=== PATIENT | male | born 1960 | race Caucasian/White ===

== ENCOUNTER 2019-03-31 10:36 | Emergency (ER) | payer OTHER ==
[2019-03-31 10:51] VITALS: BP 137/67
--- NOTE | 2019-03-31 12:18 | UC ---
Complaint Male HPI - HPI Summary HPI Summary: Waxing and Waning right flank pain for 5 days---has been vomiting due to pain at time------no fevers, hemauria, burning with urination does have urgency - History of Current Complaint Chief Complaint: UCGU Stated Complaint: KIDNEY ISSUES Time Seen by Provider: 03/31/19 12:12 Hx Obtained From: Patient Onset/Duration: Sudden Onset, Lasting Days - 5, Still Present Timing: Constant, Intermittent - with intermittent Spikes of pain Pain Intensity: 4 - spiking to 9 at time (including this morning) Pain Scale Used: 0-10 Numeric Location: Flank - right Character: Colicy Aggravating Factor(s): Nothing Alleviating Factor(s): Nothing Associated Signs And Symptoms: Positive: Back Pain, Nausea, Vomiting(# Of Episodes =) - Allergies/Home Medications Allergies/Adverse Reactions: Allergies Allergy/AdvReac Type Severity Reaction Status Date / Time No Known Allergies Allergy Verified 03/31/19 10:51 Home Medications: Home Medications Loratadine 1 tab PO DAILY 03/31/19 [History Confirmed 03/31/19] PMH/Surg Hx/FS Hx/Imm Hx Previously Healthy: Yes - Surgical History Surgical History: None - Family History Known Family History: Positive: None - Social History Occupation: Employed Full-time Lives: With Family Alcohol Use: Occasionally Substance Use Type: None Smoking Status (MU): Never Smoked Tobacco Review of Systems All Other Systems Reviewed And Are Negative: Yes Constitutional: Positive: Negative Skin: Positive: Negative Eyes: Positive: Negative ENT: Positive: Negative Respiratory: Positive: Negative Cardiovascular: Positive: Negative Gastrointestinal: Positive: Vomiting, Nausea Genitourinary: Positive: Frequency, Urgency, Other - right flank pain Motor: Positive: Negative Neurovascular: Positive: Negative Musculoskeletal: Positive: Negative Psychological: Positive: Negative Is Patient Immunocompromised?: No Physical Exam Triage Information Reviewed: Yes Appearance: Well-Appearing, No Pain Distress, Well-Nourished Vital Signs: Initial Vital Signs Temp 98 F 03/31/19 10:48 Pulse 54 03/31/19 10:48 Resp 16 03/31/19 10:48 BP 137/67 03/31/19 10:48 Pulse Ox 100 03/31/19 10:48 Vital Signs Reviewed: Yes Eye Exam: Normal Eyes: Positive: Conjunctiva Clear ENT Exam: Normal ENT: Positive: Normal ENT inspection, Hearing grossly normal. Negative: Trismus , Muffled voice, Hoarse voice Dental Exam: Normal Neck exam: Normal Neck: Positive: Supple, Nontender Respiratory Exam: Normal Respiratory: Positive: Chest non-tender, No respiratory distress, No accessory muscle use Cardiovascular Exam: Normal Cardiovascular: Positive: RRR, Pulses Normal, Brisk Capillary Refill Abdominal Exam: Normal Abdomen Description: Positive: Nontender, No Organomegaly, Soft, CVA Tenderness (R). Negative: CVA Tenderness (L), Distended Musculoskeletal Exam: Normal Musculoskeletal: Positive: Strength Intact, ROM Intact, No Edema Neurological Exam: Normal Neurological: Positive: Alert, Muscle Tone Normal Psychological Exam: Normal Skin Exam: Normal Complaint Male Course/Dx - Course Course Of Treatment: npo to ED for further assessment (as CT is not available) - Differential Dx/Diagnosis Provider Diagnosis: Renal colic on right side Discharge - Sign-Out/Discharge Documenting (check all that apply): Patient Departure All imaging exams completed and their final reports reviewed: No Studies - Discharge Plan Condition: Fair Disposition: HOME-RECOMMEND TO ED Patient Education Materials: Renal Colic (ED) Referrals: Reginald Morales MD [Primary Care Provider] - Additional Instructions: please go directly to the emergency department for evaluation of Renal Colic - Billing Disposition and Condition Condition: FAIR Disposition: Home-Recommend to ED
== END 2019-03-31 12:29 | disposition home health service (06) ==
LOC: UCEAST 10:36
DX: N23 Unspecified renal colic (principal)
CPT/HCPCS: 81003; 99212; G0463

== ENCOUNTER 2019-03-31 12:52 | Emergency (ER) | payer OTHER ==
[2019-03-31] MEDS ORDERED: NS 0.9% 1000 ML** 1,000 ML IV ONE (14:44)
[2019-03-31] MEDS ORDERED: Ketorolac INJ* 30 MG/ML 1 ML VIAL IV ONE (14:44)
[2019-03-31] MEDS ORDERED: Ondansetron INJ* 2 MG/ML VIAL IV ONE (14:44)
[2019-03-31 15:04] LABS: ABS Lymphocytes 0.9 10^3/ul (1.0-4.8); ABS Monocytes 0.5 10^3/ul (0-0.8); ABS Neutrophils 5.5 10^3/ul (1.5-7.7); Eosinophil % 0.2 %; Hematocrit 42 % (42-52); Hemoglobin 14.2 g/dL (14.0-18.0); Lymphocyte % 13.6 %; Mean Corpuscular HGB Conc 34 g/dL (31-36); Mean Corpuscular Hemoglobin 32 pg (27-31); Mean Corpuscular Volume 96 fL (80-94); Mean Platelet Volume 7.7 fL (7.4-10.4); Platelet Count 243 10^3/uL (150-450); Red Blood Count 4.42 10^6 /uL (4.18-5.48); Red Cell Distribution Width 15 % (10-15); White Blood Count 6.9 10^3/uL (3.5-10.8)
[2019-03-31 15:20] LABS: Albumin 4.2 g/dL (3.2-5.2); Albumin/Globulin Ratio 1.8 (1-3); BUN/Creatinine Ratio 18.5 (8-20); C Reactive Protein 2.29 mg/L (<8.01); Calcium 9.5 mg/dL (8.6-10.3); EGFR African American 117.6 (>60); EGFR Non-African American 97.2 (>60); Globulin 2.3 g/dL (2-4); Potassium 4.3 mmol/L (3.5-5.0); Total Bilirubin 0.8 mg/dL (0.2-1.0); Total Protein 6.5 g/dL (6.4-8.9)
--- NOTE | 2019-03-31 15:34 | ED ---
Abdominal Pain/Male - HPI Summary HPI Summary: This patient is a 58 year old M sent to ED from with a chief complaint of right flank pain since this morning. Patient also had similar pain on 03/26/19 in the right flank. Both pains lasted about an hour, and the patient reports nausea during the pain. The patient rates the pain 1/10 in severity. Symptoms aggravated by nothing. Symptoms alleviated by nothing. Patient reports nausea that has resolved in the room. Patient denies hematuria, dysuria, fever. PMHx of renal calculi 7 years ago but no DM, HTN. Denies surgeries. Denies FHx of DM , HTN. Patient occasionally drinks alcohol, but does not use substances or tobacco. - History of Current Complaint Chief Complaint: EDFlankPain Stated Complaint: RT SIDED FLANK PAIN PER PT Time Seen by Provider: 03/31/19 14:43 Hx Obtained From: Patient Onset/Duration: Sudden Onset, Lasting Hours - 1 hour, Resolved Timing: Intermittent - 2 episodes each lasting one hour. One episode on 03/26/19, second episode today, Lasting Hours - Each episode lasted approx 1 hour Severity Currently: Mild Pain Intensity: 1 Pain Scale Used: 0-10 Numeric Location: Flank - right Radiates: No Aggravating Factor(s): Nothing Alleviating Factor(s): Nothing Associated Signs And Symptoms: Positive: Negative - Hematuria, dysuria, Nausea. Negative: Fever Similar Episode/Dx As:: Kidney stone 7 years ago - Allergies/Home Medications Allergies/Adverse Reactions: Allergies Allergy/AdvReac Type Severity Reaction Status Date / Time No Known Allergies Allergy Verified 03/31/19 12:59 PMH/Surg Hx/FS Hx/Imm Hx Previously Healthy: No Endocrine/Hematology History: Denies: Hx Diabetes Cardiovascular History: Denies: Hx Hypertension History: Reports: Hx Kidney Stones - Surgical History Surgery Procedure, Year, and Place: Denies Infectious Disease History: No Infectious Disease History: Denies: Traveled Outside the [place] in Last 30 Days - Family History Known Family History: Negative: Hypertension, Diabetes - Social History Alcohol Use: Weekly Hx Substance Use: No Substance Use Type: Reports: None Hx Tobacco Use: No Smoking Status (MU): Never Smoked Tobacco Review of Systems Negative: Fever Positive: Nausea Positive: flank pain - Right. Negative: dysuria, hematuria All Other Systems Reviewed And Are Negative: Yes Physical Exam - Summary Physical Exam Summary: VITAL SIGNS: Reviewed. GENERAL: Patient is a well-developed and nourished male who is lying comfortable in the stretcher. Patient is not in any acute respiratory distress. HEAD AND FACE: Normocephalic and atraumatic. EYES: PERRLA, EOMI x 2, No injected conjunctiva. EARS: Hearing grossly intact. Ear canals and tympanic membranes are WNL. MOUTH: Oropharynx within normal limits. NECK: Supple, trachea is midline, no adenopathy, no JVD. CHEST: Symmetric, no tenderness at palpation LUNGS: Clear to auscultation bilaterally. No wheezing or crackles. CVS: RRR, S1 and S2 present, no murmurs or gallops appreciated. ABDOMEN: Soft, non-tender. No signs of distention. Positive bowel sounds. No rebound no guarding, and no masses palpated. No abdominal bruit or pulsations. EXTREMITIES: FROM in all major joints, no edema, no cyanosis or clubbing. NEURO: Alert and oriented x 3. No acute neurological deficits. Speech is normal. SKIN: Dry and warm. Triage Information Reviewed: Yes Vital Signs On Initial Exam: Initial Vitals Temp Pulse Resp BP Pulse Ox 98.3 F 50 18 158/86 98 03/31/19 12:57 03/31/19 12:57 03/31/19 12:57 03/31/19 12:57 03/31/19 12:57 Vital Signs Reviewed: Yes Diagnostics - Vital Signs Vital Signs Temp Pulse Resp BP Pulse Ox 03/31/19 14:28 98.4 F 48 18 131/65 100 03/31/19 12:57 98.3 F 50 18 158/86 98 - Laboratory Lab Results: Lab Results 03/31/19 03/31/19 03/31/19 Range/Units 14:56 14:56 14:56 WBC 6.9 (3.5-10.8) 10^3/uL RBC 4.42 (4.18-5.48) 10^6 /uL Hgb 14.2 (14.0-18.0) g/dL Hct 42 (42-52) % MCV 96 H (80-94) fL MCH 32 H (27-31) pg MCHC 34 (31-36) g/dL RDW 15 (10-15) % Plt Count 243 (150-450) 10^3/uL MPV 7.7 (7.4-10.4) fL Neut % (Auto) 79.0 % Lymph % (Auto) 13.6 % [place] % (Auto) 6.8 % Eos % (Auto) 0.2 % Baso % (Auto) 0.4 % Absolute Neuts (auto) 5.5 (1.5-7.7) 10^3/ul Absolute Lymphs (auto) 0.9 L (1.0-4.8) 10^3/ul Absolute Monos (auto) 0.5 (0-0.8) 10^3/ul Absolute Eos (auto) 0.0 (0-0.6) 10^3/ul Absolute Basos (auto) 0.0 (0-0.2) 10^3/ul Absolute Nucleated RBC 0.0 10^3/ul Nucleated RBC % 0.0 Sodium 139 (135-145) mmol/L Potassium 4.3 (3.5-5.0) mmol/L Chloride 106 (101-111) mmol/L Carbon Dioxide 29 (22-32) mmol/L Anion Gap 4 (2-11) mmol/L BUN 15 (6-24) mg/dL Creatinine 0.81 (0.67-1.17) mg/dL Est GFR ( Amer) 117.6 (>60) Est GFR (Non-Af Amer) 97.2 (>60) BUN/Creatinine Ratio 18.5 (8-20) Glucose 114 H (70-100) mg/dL Lactic Acid 1.0 (0.5-2.0) mmol/L Calcium 9.5 (8.6-10.3) mg/dL Total Bilirubin 0.80 (0.2-1.0) mg/dL AST 25 (13-39) U/L ALT 20 (7-52) U/L Alkaline Phosphatase 69 (34-104) U/L Total Creatine Kinase 158 (10-223) U/L C-Reactive Protein 2.29 (<8.01) mg/L Total Protein 6.5 (6.4-8.9) g/dL Albumin 4.2 (3.2-5.2) g/dL Globulin 2.3 (2-4) g/dL Albumin/Globulin Ratio 1.8 (1-3) Lipase 12 (11.0-82.0) U/L Result Diagrams: 03/31/19 14:56 03/31/19 14:56 Lab Statement: Any lab studies that have been ordered have been reviewed, and results considered in the medical decision making process. - CT A/P CT Interpretation Completed By: Radiologist Summary of CT Findings: 1. There is a nonobstructive punctate calcification at the distal right ureter. 2. Chronic and degenerative changes described in the body the report unlikely to be related to the patient's current presentation. Dr. Dahl has reviewed this radiology report. Re-Evaluation - Re-Evaluation First Eval Re-Evaluation Time: 16:50 Comment: Discussed results with patient. Patient will be discharged home with dx of kidney stone and instructions to follow up with urology. Patient inquired about flomax but I explained to him the study stating that flomax is no longer indicated for kidney stones. Patient understands and agrees with this plan. Abdominal Pain Male Course/Dx - Course Assessment/Plan: This patient is a 58 year old M sent to ED from with a chief complaint of right flank pain since this morning. Patient also had similar pain on 03/26/19 in the right flank. Both pains lasted about an hour, and the patient reports nausea during the pain. The patient rates the pain 1/10 in severity. Symptoms aggravated by nothing. Symptoms alleviated by nothing. Patient reports nausea that has resolved in the room. Patient denies hematuria, dysuria, fever. PMHx of renal calculi 7 years ago but no DM, HTN. Denies surgeries. Denies FHx of DM, HTN. Patient occasionally drinks alcohol, but does not use substances or tobacco. Blood work without any significant abnormality except for glucose 114. Abdominal and pelvic CT impression: 1. There is a nonobstructive punctate calcification at the distal right ureter. 2. Chronic and degenerative changes described in the body the report unlikely to be. related to the patient's current presentation. Urinalysis done in the urgent care is negative. The patient doesnt require any pain medication. The patient is asymptomatic at this point. Therefore the patient will be discharged home with follow-up with PCP and urology. Patient will be given a prescription for pain medications. - Diagnoses Provider Diagnoses: Kidney stone on right side Discharge - Sign-Out/Discharge Documenting (check all that apply): Patient Departure - Discharge Patient Received Moderate/Deep Sedation with Procedure: No - Discharge Plan Condition: Stable Disposition: HOME Prescriptions: HYDROcodone/ACETAMIN 5-325 MG* [[place] 5-325 TAB*] 1 tab PO Q6H PRN #12 tab MDD 4 PRN Reason: Pain Patient Education Materials: Kidney Stones (ED) Referrals: Reginald Morales MD [Primary Care Provider] - 3 Days Tae Salinas MD [Medical Doctor] - 3 Days Additional Instructions: FOLLOW UP WITH YOUR PRIMARY CARE PROVIDER WITHIN ONE WEEK. FOLLOW UP WITH DR. SALINAS (UROLOGIST) WITHIN ONE WEEK. RETURN TO THE ED FOR ANY WORSENING OR NEW SYMPTOMS. - Billing Disposition and Condition Condition: STABLE Disposition: Home - Attestation Statements Document Initiated by Scribe: Yes Documenting Scribe: Barrington Saucedo Provider For Whom Maribeth is Documenting (Include Credential): Martell Dahl MD Scribe Attestation: Barrington Campbell, scribed for Martell Dahl MD on 04/01/19 at 1013. Scribe Documentation Reviewed: Yes Provider Attestation: The documentation as recorded by the Barrington knight accurately reflects the service I personally performed and the decisions made by me, Martell Dahl MD Status of Scribe Document: Viewed
[2019-03-31 16:57] VITALS: BP 132/66
== END 2019-03-31 16:56 | disposition home or self-care (01) ==
LOC: ED 12:52
DX: N20.0 Calculus of kidney (principal)
CPT/HCPCS: 36415; 74176; 80053; 82550; 83605; 83690; 85025; 86140; 96361; 96374; 96375; 99282

== ENCOUNTER 2019-04-09 08:13 | Emergency (ER) | payer OTHER ==
--- OUTSIDE RECORDS SUMMARY | 2019-04-09 08:25 | XMS REPORT | Continuity of Care Document ---
:1960 External Reference #:[id number] Author Name Reginald Morales M.D. Address [address] [facility] [address] [place] [address] Care Team Providers Name Role Phone HCP/LW on file Primary Care Physician Unavailable Payers Date Identification Numbers Payment Provider Subscriber Policy Number: [id number] Rolanda Zhu PayID: [id number] [address] [place] [address] Problems Active Problems Provider Date Mitral valve disorder Jeanine Garcia MD Onset: 06/17/2010 Allergic rhinitis Jeanine Garcia MD Onset: 06/17/2010 Resolved Problems Benign essential hypertension Jeanine Garcia MD Onset: 06/17/2010 Resolved: 08/31/2018 Family History Date Family Member(s) Observation Comments General No Cancer in 1st degree relatives. : (age 82 Father due to Subdural Years) Hematoma (After A Fall) Father Heart Problems [place] in his 60s; CABGx3 AFTER [place] in his 70s Mother due to From () Complication After Heart Valve Surgery At Age 82 Mother High Blood Pressure Number of Siblings Siblings: 3 (2 brothers, 1 sister). all with hx of joint replacements. 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 Uses sunscreen Seat Belt/Car Seat Always uses a seat belt Currently Active The patient is currently sexually active Contraceptive Methods Does not currently use any method of control Age 1st [place] First intercourse was at age 18 # Partners in a Lifetime The patient has had 3 sexual partners Sexual Hx PT States Heterosexual Allergies, Adverse Reactions, Alerts Description No Known Drug Allergies Medications Active Medications SIG Qnty Indications Ordering Date Provider Pyridium 1 tabs by mouth 15tabs R35.0 Reginald Morales, 04/02/2019 200mg Tablets three times a day M.DJeanmarie for bladder irritation Claritin one po daily prn Unknown 2019 Fluocinonide Apply To Scalp Unknown 06/20/2018 0.05% Nightly For 1 Week Solution Then as Needed Multivitamin 50+ 1 qd Unknown 08/27/2017 History Medications Fexofenadine HCL Unknown 07/31/2018 - 2019 Nasonex 1 sprays to each 17gm H69.02 Bello Bautista 03/10/2016 - 50mcg/Act nostril twice every Kristin Cárdenas 03/20/2016 Suspension day as needed to improve the ear Trimethoprim opthalmic 1 or 2 10ml H10.021 Bello Bautista 03/04/2016 - Sulfate/Polymyxin B drops in each eye Kristin Cárdenas 03/14/2016 Sulfate three times a day for 5 days 89289-8.1Unit/ML-% Solution PT For Right evaluate and treat, M25.511 Carmen, 08/25/2015 - Shoulder Pain modalities as Kristin Montelongo 08/25/2016 needed, instruct in hep Ibuprofen prn OTC Unknown 07/28/2014 - 200mg 08/27/2017 Capsules Fluticasone 2 sprays into each 1units 477.9 Jeanine Garcia 11/01/2012 - Propionate nostril qd for 07/28/2014 50mcg/Act nasal congestion. Suspension alessio allergies. rinse mouth post Cetirizine HCL 1 po daily otc Unknown 06/22/2011 - 10mg 04/30/2018 Tablets Ecotrin Low Strength 1tab po daily for 100tabs Jeanine Garcia 06/11/2009 - cad/cva prophylaxis 08/25/2015 81mg Tablets BP Monitor take bp once week 1units 401.1 Jeanine Garcia 06/11/2009 - and see if can d/c 08/25/2015 enalapril. PT For Right Hip please evaluate and 843.8 Carmen 02/11/2009 - (Quadriceps) Strain treat, modalities Kristin Montelongo 06/11/2009 prn, instruct in hep Tramadol HCL 1-2 po q6h prn for 30tabs 843.8 Carmen 02/11/2009 - 50mg pain Kristin Montelongo 06/11/2009 Tablets Vasotec 1/2 tab po qd 90tabs 401.1 Jeanine Garcia 01/01/2009 - 5mg Tablets 06/11/2009 Ibuprofen 2 to 3 tab po q6 to 100tabs 719.41 Jeanine Garcia 06/28/2007 - 200mg 8h prn 06/22/2011 Tablets elbow/shoulder pain. can use with tylenol 1gm q6hmax ibuprofen is 2400mg/day 726.32 Physical Therpay for RT shoulder(rcs?) 6Weeks 719.41 Jeanine Garcia 2006 - and elbow pain(lat 01/01/2009 epicondylitis). help eval and treat 2 to 3x week Vasotec 1 tab po daily 90tabs 401.9 Jeanine Garcia 06/29/2006 - 5mg 01/01/2009 Tablets 401.1 Allergy Immunotherapy Unknown - 06/22/2011 Medications Administered in Office Medication SIG Qnty Indications Ordering Provider Date Allergen Immunotherapy Reginald Morales M.D. 06/07/2017 SNGL/Mult - Specify # Doses Injection SC/Im Injections Nurse's Schedule 08/26/2016 Injection Allergen Immunotherapy Bello Cárdenas M.D. 06/13/2016 SNGL/Mult - Specify # Doses Injection Allergen Immunotherapy Reginald Morales M.D. 07/09/2015 SNGL/Mult - Specify # Doses Injection Allergen Immunotherapy Bello Cárdenas M.D. 08/08/2014 SNGL/Mult - Specify # Doses Injection Allergen Immunotherapy Jeanine Garcia MD 11/22/2013 SNGL/Mult - Specify # Doses Injection Allergen Immunotherapy Jeanine Garcia MD 07/18/2013 SNGL/Mult - Specify # Doses Injection Allergen Immunotherapy Jeanine Gacria MD 12/20/2012 SNGL/Mult - Specify # Doses Injection Immunizations CPT Code Status Date Vaccine Lot # [id number] Given 01/25/2019 Shingrix Zoster (Shingles) Vaccine (HZV) Recomb,Subnit,Adjuvanted 87017 Given 08/02/2018 Shingrix Zoster (Shingles) Vaccine (HZV) [id number] Recomb,Subnit,Adjuvanted 31277 Given 07/20/2018 Influenza Virus Vaccine, Quadrivalent, Split, Preservative Free 43565 Given 06/17/2010 Adacel or Boostrix, TDaP [id number] 82097 Given 04/22/2003 Td Immunization Vital Signs Date Vital Result Comment 04/02/2019 2:00pm BP Systolic 112 mmHg BP Diastolic 72 mmHg Height 71.25 inches 5'11.25" Weight 172.00 lb BMI (Body Mass Index) 23.8 kg/m2 08/31/2018 9:50am BP Systolic 122 mmHg BP Diastolic 66 mmHg Height 71.50 inches 5'11.50" Weight 168.00 lb BMI (Body Mass Index) 23.1 kg/m2 06/04/2018 2:45pm BP Systolic 126 mmHg BP Diastolic 54 mmHg Weight 170.00 lb 04/09/2018 3:54pm BP Systolic 128 mmHg BP Diastolic 70 mmHg 04/04/2018 4:03pm BP Systolic 116 mmHg BP Diastolic 70 mmHg Height 71 inches 5'11" Weight 171.00 lb BMI (Body Mass Index) 23.8 kg/m2 08/28/2017 2:09pm BP Systolic 118 mmHg BP Diastolic 70 mmHg Heart Rate 60 /min reg Respiratory Rate 12 /min not laboured Height 71 inches 5'11" Weight 169.00 lb BMI (Body Mass Index) 23.6 kg/m2 08/26/2016 2:02pm BP Systolic 118 mmHg BP Diastolic 60 mmHg BP Systolic Recheck 124 mmHg R arm sitting BP Diastolic Recheck 68 mmHg R arm sitting Heart Rate 60 /min reg Respiratory Rate 12 /min not laboured Height 71.25 inches 5'11.25" Weight 172.00 lb BMI (Body Mass Index) 23.8 kg/m2 03/10/2016 4:12pm Body Temperature 97.9 F 03/04/2016 3:57pm BP Systolic 120 mmHg BP Diastolic 80 mmHg Body Temperature 99.3 F Height 72 inches 6'0" with sneakers Weight 174.00 lb with sneakers BMI (Body Mass Index) 23.6 kg/m2 08/25/2015 10:27am BP Systolic 122 mmHg BP Diastolic 64 mmHg Height 71.50 inches 5'11.50" Weight 176.00 lb BMI (Body Mass Index) 24.2 kg/m2 08/20/2014 9:31am BP Systolic 116 mmHg BP Diastolic 76 mmHg Height 71.75 inches 5'11.75" Weight 179.50 lb BMI (Body Mass Index) 24.5 kg/m2 07/29/2014 11:39am BP Systolic 133 mmHg BP Diastolic 69 mmHg Heart Rate 58 /min Height 72.75 inches 6'0.75" shoes on Weight 183.00 lb shoes on BMI (Body Mass Index) 24.3 kg/m2 11/19/2012 1:51pm BP Systolic 140 mmHg BP Diastolic 82 mmHg 11/01/2012 2:54pm BP Systolic 130 mmHg BP Diastolic 76 mmHg Height 71.50 inches 5'11.50" Weight 177.00 lb BMI (Body Mass Index) 24.3 kg/m2 06/23/2011 9:22am BP Systolic 120 mmHg BP Diastolic 70 mmHg Height 72 inches 6'0" Weight 180.00 lb BMI (Body Mass Index) 24.4 kg/m2 06/17/2010 9:26am BP Systolic 122 mmHg BP Diastolic 76 mmHg Height 72.25 inches 6'0.25" Weight 179.00 lb BMI (Body Mass Index) 24.1 kg/m2 08/27/2009 8:55am BP Systolic 102 mmHg compare to home machine:128/74 BP Diastolic 78 mmHg compare to home machine:128/74 Weight 175.50 lb 06/11/2009 1:38pm BP Systolic 122 mmHg BP Diastolic 70 mmHg Height 72 inches 6'0" Weight 176.00 lb BMI (Body Mass Index) 23.9 kg/m2 02/11/2009 11:27am BP Systolic 146 mmHg BP Diastolic 70 mmHg Weight 175.00 lb Last Menstrual Period 0 01/01/2009 11:28am BP Systolic 112 mmHg BP Diastolic 72 mmHg Height 72 inches 6'0" Weight 180.00 lb w/out shoes BMI (Body Mass Index) 24.4 kg/m2 06/28/2007 9:05am BP Systolic 122 mmHg BP Diastolic 60 mmHg Height 72 inches 6'0" Weight 181.50 lb BMI (Body Mass Index) 24.6 kg/m2 08/16/2006 10:09am BP Systolic 136 mmHg BP Diastolic 78 mmHg BP Systolic Recheck 138 mmHg R arm sitting BP Diastolic Recheck 76 mmHg R arm sitting Height 72 inches 6'0" Weight 182.00 lb BMI (Body Mass Index) 24.7 kg/m2 Last Menstrual Period 0 Results Test Date Facility Test Result H/L Range Note Urine Micro Inhouse 04/02/2019 In House [facility] WBC 0-2 1 Ua RBC 0-1 Ua Casts - Ua Epi - Ua Other - Ua Glucose - Ua Bilirubin - Ua Ketones - Ua Specific Gonzales 1.015 Ua Blood - Ua PH 6.0 Ua Protein - Ua Urobilinogen - Ua Nitrite - Ua Leukocytes - Culture Urine Inhouse 04/02/2019 In House Presumptive <pending> Pseudomonas <pending> Staphylococcus <pending> Enterococcus <pending> Yeast <pending> E Coli <pending> Klebsiella <pending> Proteus <pending> Colonies <pending> CBC Auto Diff 03/31/2019 [facility] White Blood Count 6.9 10^3/uL N 3.5-10.8 [phone] Red Blood Count 4.42 10^6/uL N 4.18-5.48 Hemoglobin 14.2 g/dL N 14.0-18.0 Hematocrit 42 % N 42-52 Mean Corpuscular Volume 96 fL High 80-94 Mean Corpuscular Hemoglobin 32 pg High 27-31 Mean Corpuscular HGB Conc 34 g/dL N 31-36 Red Cell Distribution Width 15 % N 10-15 Platelet Count 243 10^3/uL N 150-450 Mean Platelet Volume 7.7 fL N 7.4-10.4 Abs Neutrophils 5.5 10^3/uL N 1.5-7.7 Abs Lymphocytes 0.9 10^3/uL Low 1.0-4.8 Abs Monocytes 0.5 10^3/uL N 0-0.8 Abs Eosinophils 0.0 10^3/uL N 0-0.6 Abs Basophils 0.0 10^3/uL N 0-0.2 Abs Nucleated RBC 0.0 10^3/uL Granulocyte % 79.0 % Lymphocyte % 13.6 % Monocyte % 6.8 % Eosinophil % 0.2 % Basophil % 0.4 % Nucleated Red Blood Cells % 0.0 Laboratory test finding 03/31/2019 [facility] Lactic Acid 1.0 mmol/L N 0.5-2.0 2 [phone] Comp Metabolic Panel 03/31/2019 [facility] Sodium 139 mmol/L N 135- 145 [phone] Potassium 4.3 mmol/L N 3.5-5.0 Chloride 106 mmol/L N 101-111 Co2 Carbon Dioxide 29 mmol/L N 22-32 Anion Gap 4 mmol/L N 2-11 Glucose 114 mg/dL High 70-100 Blood Urea Nitrogen 15 mg/dL N 6-24 Creatinine 0.81 mg/dL N 0.67-1.17 BUN/Creatinine Ratio 18.5 N 8-20 Calcium 9.5 mg/dL N 8.6-10.3 Total Protein 6.5 g/dL N 6.4-8.9 Albumin 4.2 g/dL N 3.2-5.2 Globulin 2.3 g/dL N 2-4 Albumin/Globulin Ratio 1.8 N 1-3 Total Bilirubin 0.80 mg/dL N 0.2-1.0 Alkaline Phosphatase 69 U/L N 34-104 Alt 20 U/L N 7-52 Ast 25 U/L N 13-39 Egfr Non- 97.2 >60 Egfr 117.6 >60 3 Laboratory test finding 03/31/2019 [facility] Lipase 12 U/L N 11.0- 82.0 [phone] Creatine Kinase(CK) 158 U/L N 10-223 C Reactive Protein 2.29 mg/L N <8.01 Poc Urinalysis 03/31/2019 [facility] Poc Glucose, Urine Negative Negative [phone] Poc Bilirubin, Urine Negative Negative Poc Ketone, Urine Negative Negative Poc Specific Gonzales, Urine 1.015 N 1.010-1.030 Poc Blood, Urine 2+ Abnormal Negative Poc pH, Urine 6.0 N 5-9 Poc Protein, Urine Negative Negative Poc Urobilinogen, Urine 0.2 Negative Poc Nitrite, Urine Negative Negative Poc Leukocytes, Urine Negative Negative Poc Color, Urine Yellow Poc Clarity, Urine Clear 4 Urine Micro Inhouse 08/31/2018 In House Ua WBC - 5 Ua RBC - Ua Casts - Ua Epi - Ua Other - Ua Glucose - Ua Bilirubin - Ua Ketones - Ua Specific Gonzales 1.025 Ua Blood - Ua PH 6.0 Ua Protein - Ua Urobilinogen - Ua Nitrite - Ua Leukocytes - Laboratory test 01/25/2018 [facility] Surgical Pathology SEE RESULT 6, 7 finding [phone] BELOW Lipid Profile 07/29/2016 [facility] Triglycerides 59 mg/dL N 8 (Trig/Chol/HDL) [phone] Cholesterol 166 mg/dL N 9 HDL Cholesterol 60.8 mg/dL N 10 LDL Cholesterol 93 mg/dL N 11 Laboratory test finding 07/29/2016 [facility] Glucose 90 mg/dL N 70- 100 12 [phone] Lipid Profile 07/27/2015 [facility] Triglycerides 61 mg/dL N 13 (Trig/Chol/HDL) [phone] Cholesterol 167 mg/dL N 14 HDL Cholesterol 62.2 mg/dL N 15 LDL Cholesterol 93 mg/dL N 16 Laboratory test 07/27/2015 [facility] Glucose 92 mg/dL N 70-100 finding [phone] Laboratory test 08/20/2014 [facility] Hepatitis C Nonreactive N Nonreactive finding [phone] Antibody PSA Screening 1.257 ng/mL N 0-4.000 17 Urine Micro Inhouse 08/20/2014 In House Ua WBC 0-2 Ua RBC 0-1 Ua Casts - Ua Epi - Ua Other sediment Ua Glucose - Ua Bilirubin - Ua Ketones - Ua Specific Gonzales 1.005 Ua Blood - Ua PH 8.0 Ua Protein - Ua Urobilinogen - Ua Nitrite - Ua Leukocytes - Lipid Profile (Trig/Chol/HDL) 08/11/2014 [facility] Triglycerides 89 mg /dL N 18 [phone] Cholesterol 176 mg/dL N 19 HDL Cholesterol 56.9 mg/dL N 20 LDL Cholesterol 101 mg/dL N 21 Laboratory test 08/11/2014 [facility] Glucose 87 mg/dL N 70-100 finding [phone] Surgical Pathology 01/31/2013 [place] [employer] S RUN DATE: 22 [phone] 02/04/ <SEE NOTE> Lipid Profile 11/02/2012 [facility] Triglycerides 78 mg/dL 40-200 (Trig/Chol/HDL) [phone] Cholesterol 195 mg/dL Less than 200 HDL Cholesterol 64 mg/dL High 40-60 23 Cholesterol/HDL Ratio 3.3 Average 1-4.44 LDL Cholesterol 120.4 mg/dL High Less Than 100 24 Comp Metabolic Panel 11/02/2012 [facility] Sodium 140 mmol/L 133- 145 [phone] Potassium 4.0 mmol/L 3.5-5.0 Chloride 104 mmol/L 101-111 Co2 Carbon Dioxide 31.0 mmol/L 22-32 Anion Gap 5.0 mmol/L 2-11 Glucose 101 mg/dL High 70-100 Blood Urea Nitrogen 17 mg/dL 6-24 Creatinine 0.90 mg/dL 0.50-1.40 BUN/Creatinine Ratio 18.9 8-20 Calcium 9.3 mg/dL 8.1-9.9 Total Protein 6.5 g/dL 6.2-8.1 Albumin 3.9 g/dL 3.6-5.4 Globulin 2.6 g/dL 2-4 Albumin/Globulin Ratio 1.5 1-3 Total Bilirubin 1.0 mg/dL 0.4-1.5 Alkaline Phosphatase 66 U/L 30-110 Alt 26 U/L 14-54 Ast 24 U/L 12-42 Egfr Non- 87.9 >60 Egfr 113.1 >60 25 CBC With Manual 11/02/2012 [facility] White Blood 5.5 10^3/uL 4.8- 10.8 Diff [phone] Count Red Blood Count 4.40 10^6/uL 4.0-5.4 Hemoglobin 13.9 g/dL Low 14.0-18.0 Hematocrit 42 % 42-52 Mean Corpuscular Volume 96 fL High 80-94 Mean Corpuscular Hemoglobin 32 pg High 27-31 Mean Corpuscular HGB Conc 33 g/dL 31-36 Red Cell Distribution Width 15 % 10.5-15 Platelet Count 272 10^3/uL 150-450 Mean Platelet Volume 8 um3 7.4-10.4 Abs Neutrophils 2.8 10^3/uL 1.5-7.7 Abs Lymphocytes 1.8 10^3/uL 1.0-4.8 Abs Monocytes 0.7 10^3/uL 0-0.8 Abs Eosinophils 0.2 10^3/uL 0-0.6 Abs Basophils 0 10^3/uL 0-0.2 Abs Nucleated RBC 0 10^3/uL Neutrophil % 46 % 38-83 Lymphocytes % 35 % 25-47 Monocytes % 11 % 0-13 Eosinophils % 6 % 0-6 Basophil % 1 % 0-2 Reactive Lymph % 1 % 0-6 Macrocytosis 1+ Retic Count 11/02/2012 [facility] Retic Count 0.9 % 0.5-1.5 [phone] Corrected Retic Count 0.8 % 0.5-1.5 Maturation Factor Retic 1.0 Retic Index 0.80 Mean Retic Volume 122.1 Immature Retic Fraction 0.31 RBC Retic Count 4.40 10^6/uL Low 4.6-6.2 Hematocrit for Retic CNT 42 % 42-52 Laboratory test finding 11/02/2012 [facility] Vitamin B12 661 pg/mL 180-914 26 [phone] Folate > 25.0 ng/mL High 2-16 27 Ferritin 63 ng/mL 24-336 28 Iron & Iron Binding Capacity 11/02/2012 [facility] Iron 94 g/dL 45 -182 [phone] Unsaturated Iron Binding 264 g/dL Total Iron Binding Capacity 358 g/dL 250-450 Transferrin 255.9 % Iron Saturation 26 % 15-55 Pthi 11/02/2012 [facility] PTH Intact 5.1 pmol/L 1.3-9.0 [phone] Calcium (PTH Intact) 9.1 mg/dL 8.1-9.9 Laboratory test finding 11/02/2012 [facility] Phosphorus 3.3 mg/dL 2.4-4.7 29 [phone] Uric Acid 4.8 mg/dL 2.6-7.2 30 Urine Micro Inhouse 11/01/2012 In House Ua WBC - Ua RBC - Ua Casts - Ua Epi many Ua Other - Ua Glucose - Ua Bilirubin - Ua Ketones - Ua Specific Gonzales 1.005 Ua Blood - Ua PH 6.0 Ua Protein - Ua Urobilinogen - Ua Nitrite - Ua Leukocytes - CBC With Manual 04/24/2012 [facility] White Blood Count 7.8 CUMM 4.8 -10.8 Diff [phone] Red Cell Count 4.20 CUMM Low 4.6-6.2 Hemoglobin 13.4 g/dL Low 14.0-18.0 Hematocrit 40 % Low 42-52 Mean Corpuscular Volume 94 um3 80-94 Mean Corpuscular Hemoglob 32 pg High 27-31 Mean Corpuscular HGB Cone 34 g/dL 32-36 Redcell Distribution WDTH 14 % 10.5-15 Platelet Count 238 CUMM 150-450 Mean Platelet Volume 8.0 um3 7.4-10.4 Absolute Neutrophil Count 6.1 1.5-7.7 Polysegmented Neutrophil 83 % 38-83 Band Neutrophil 1 % 0-8 Lymphocyte 11 % Low 25-47 Monocyte 3 % 0-13 Eosinophil 2 % 0-6 Anisocytosis SLIGHT Comp Metabolic Panel 04/24/2012 [facility] Sodium 139 mmol/L 135- 145 [phone] Potassium 4.4 mmol/L 3.5-5.0 Chloride 102 mmol/L 101-111 Co2 (Carbon Dioxide) 28.0 mmol/L 22-32 Anion Gap 9.0 mmol/L 2-11 31 Glucose 153 mg/dL High 70-100 BUN 17 mg/dL 6-24 Creatinine 1.0 mg/dL 0.50-1.40 One Over Creatinine 1.00 BUN/Creatinine Ratio 17.0 8-20 Calcium 9.1 mg/dL 8.1-9.9 Total Protein 6.2 GM/DL 6.2-8.1 Albumin 3.9 GM/DL 3.6-5.4 Globulin 2.3 GM/DL 2-4 Albumin/Globulin Ratio 1.7 1-3 Bilirubin Total 0.7 mg/dL 0.4-1.5 32 Alkaline Phosphatase 64 U/L 39-117 Alt (SGPT) 22 U/L 17-63 Ast (Sgot) 26 U/L 12-42 eGFR Non- 77.9 > 60 eGFR 100.1 > 60 33 Urine Culture & 04/24/2012 [facility] <SEE 34 Sensitivi [phone] NOTE> Laboratory test 06/29/2011 [facility] PSA Screening 0.76 NG/ML 0-4 35 finding [phone] Comp Metabolic 06/29/2011 [facility] Sodium 141 mmol/L 135- Panel [phone] Potassium 4.1 mmol/L 3.5-5.0 Chloride 105 mmol/L 101-111 Co2 (Carbon Dioxide) 31.0 mmol/L 22-32 Anion Gap 5.0 mmol/L 2-11 36 Glucose 96 mg/dL 70-100 BUN 20 mg/dL 6-24 Creatinine 0.8 mg/dL 0.50-1.40 One Over Creatinine 1.25 BUN/Creatinine Ratio 25.0 High 8-20 Calcium 9.1 mg/dL 8.1-9.9 Total Protein 6.0 GM/DL Low 6.2-8.1 Albumin 3.9 GM/DL 3.6-5.4 Globulin 2.1 GM/DL 2-4 Albumin/Globulin Ratio 1.9 1-3 Bilirubin Total 1.0 mg/dL 0.4-1.5 37 Alkaline Phosphatase 59 U/L 39-117 Alt (SGPT) 20 U/L 17-63 Ast (Sgot) 21 U/L 12-42 eGFR Non- 101.1 > 60 eGFR 130.0 > 60 38 Urine Micro Inhouse 06/23/2011 In House Ua WBC - Ua RBC - Ua Casts - Ua Epi - Ua Other sediment tntc Ua Glucose - Ua Bilirubin - Ua Ketones - Ua Specific Gonzales 1.000 Ua Blood - Ua PH 7.0 Ua Protein - Ua Urobilinogen - Ua Nitrite - Ua Leukocytes tr Comp Metabolic Panel 01/01/2009 [facility] Sodium 139 mmol/L 135- 145 [phone] Potassium 4.4 mmol/L 3.5-5.0 Chloride 104 mmol/L 101-111 Co2 (Carbon Dioxide) 31.0 mmol/L 22-32 Anion Gap 4.0 mmol/L 2-11 39 Glucose 90 mg/dL 70-100 40 BUN 15 mg/dL 6-24 Creatinine 0.90 mg/dL 0.50-1.40 One Over Creatinine 1.10 BUN/Creatinine Ratio 16.7 8-20 Calcium 9.5 mg/dL 8.1-9.9 41 Total Protein 6.1 GM/DL Low 6.2-8.1 Albumin 3.9 GM/DL 3.6-5.4 Globulin 2.2 GM/DL 2-4 Albumin/Globulin Ratio 1.8 1-3 Bilirubin Total 1.2 mg/dL 0.4-1.5 Alkaline Phosphatase 69 U/L 39-117 Alt (SGPT) 39 U/L 17-63 Ast (Sgot) 30 U/L 12-42 Lipid Profile 01/01/2009 [facility] Triglyceride 63 mg/dL 40-200 (Trig/Chol/HDL) [phone] Cholesterol 176 mg/dL Less Than 200 42 High Density Lipoprotein 54 mg/dL 40-60 43 Cholesterol/HDL Ratio 3.26 AVERAGE 1-4.97 Low Density Lipoprotein 109 mg/dL High Less Than 100 44 CBC With Manual 01/01/2009 [facility] White Blood Count 4.6 CUMM Low 4.8-10.8 Diff [phone] Red Cell Count 4.38 CUMM Low 4.6-6.2 Hemoglobin 14.0 g/dL 14.0-18.0 Hematocrit 41 % Low 42-52 Mean Corpuscular Volume 93 um3 80-94 Mean Corpuscular Hemoglob 32 pg High 27-31 Mean Corpuscular HGB Cone 35 g/dL 32-36 Redcell Distribution WDTH 15 % 10.5-15 Platelet Count 270 CUMM 150-450 Mean Platelet Volume 7.3 um3 Low 7.4-10.4 Polysegmented Neutrophil 53 % 38-83 Lymphocyte 33 % 25-47 Monocyte 10 % 0-13 Eosenophil 3 % 0-6 Atypical Lymph 1 % 0-6 Absolute Neutrophil Count 2.4 RBC Morphology NORMAL Comp Metabolic Panel 06/28/2007 [facility] One Over Creatinine 1.00 [phone] Anion Gap 6.0 mmol/L 2-11 45 Albumin/Globulin Ratio 1.9 1-3 Albumin 4.0 GM/DL 3.6-5.4 Alkaline Phosphatase 64 U/L 39-117 Alt (SGPT) 30 U/L 17-63 Ast (Sgot) 27 U/L 12-42 BUN 14 mg/dL 6-24 Calcium 9.1 mg/dL 8.7-10.2 Chloride 104 mmol/L 101-111 Co2 (Carbon Dioxide) 29.0 mmol/L 22-32 Globulin 2.1 GM/DL 2-4 Glucose 95 mg/dL 70-105 Potassium 4.2 mmol/L 3.5-5.0 Sodium 139 mmol/L 135-145 Bilirubin Total 1.0 mg/dL 0.4-1.5 Total Protein 6.1 GM/DL Low 6.2-8.1 BUN/Creatinine Ratio 14.0 8-20 Creatinine 1.0 mg/dL 0.5-1.4 Lipid Profile 06/28/2007 [facility] Cholesterol/HDL 3.37 1-4.97 (Trig/Chol/HDL) [phone] Ratio AVERAGE Cholesterol 202 mg/dL High Less Than 200 46 Triglyceride 71 mg/dL 40-200 High Density Lipoprotein 60 mg/dL 40-60 47 Low Density Lipoprotein 128 mg/dL High Less Than 100 48 Laboratory test finding 06/28/2007 [facility] TSH 3.44 MIU/ML 0.34- 5.60 [phone] Ferritin 77 NG/ML 24-336 CBC With Manual 06/28/2007 [facility] White Blood Count 4.8 CUMM 4.8 -10.8 Diff [phone] Absolute Neutrophil Count 2.7 Atypical Lymph 4 % 0-6 Anisocytosis SLIGHT Band Neutrophil 2 % 0-8 Hematocrit 41 % Low 42-52 Hemoglobin 13.8 g/dL Low 14.0-18.0 Eosenophil 1 % 0-6 Lymphocyte 29 % 5-47 Mean Corpuscular HGB Cone 34 g/dL 32-36 Mean Corpuscular Hemoglob 32 pg High 27-31 Mean Corpuscular Volume 95 um3 High 80-94 Monocyte 9 % 0-13 Mean Platelet Volume 7.4 um3 7.4-10.4 Platelet Count 309 CUMM 150-450 Polysegmented Neutrophil 55 % 38-83 Red Cell Count 4.31 CUMM Low 4.6-6.2 Redcell Distribution WDTH 15 % 10.5-15 Laboratory test finding 08/16/2006 In House Urine Microscopic Inhouse 0-2 RBC Ua Inhouse 08/16/2006 In House Ua Glucose - Ua Bilirubin - Ua Ketones - Ua Specific Gonzales 1.015 Ua Blood - Ua PH 7.0 Ua Protein tr Ua Urobilinogen - Ua Nitrite - Ua Leukocytes - Lipid Profile 07/03/2006 [facility] Cholesterol/HDL 3.15 1-4.97 49 (Trig/Chol/HDL) [phone] Ratio AVERAGE Cholesterol 195 mg/dL Less Than 200 50 Triglyceride 37 mg/dL Low 40-200 High Density Lipoprotein 62 mg/dL High 40-60 51 Low Density Lipoprotein 126 mg/dL High Less Than 100 52 Comp Metabolic Panel 07/03/2006 [facility] One Over Creatinine 1.00 [phone] Anion Gap 9.0 mmol/L 2-11 53 Albumin/Globulin Ratio 1.7 1-3 Albumin 4.1 GM/DL 3.6-5.4 Alkaline Phosphatase 73 U/L 39-117 Alt (SGPT) 37 U/L 17-63 Ast (Sgot) 35 U/L 12-42 BUN 15 mg/dL 6-24 Calcium 8.8 mg/dL 8.7-10.2 Chloride 99 mmol/L Low 101-111 Co2 (Carbon Dioxide) 28.0 mmol/L 22-32 Globulin 2.4 GM/DL 2-4 Glucose 80 mg/dL 70-105 Potassium 4.0 mmol/L 3.5-5.0 Sodium 136 mmol/L 135-145 Bilirubin Total 0.9 mg/dL 0.4-1.5 Total Protein 6.5 GM/DL 6.2-8.1 BUN/Creatinine Ratio 15.0 8-20 Creatinine 1.0 mg/dL 0.5-1.4 CBC With Manual 07/03/2006 [facility] White Blood Count 6.2 CUMM 4.8 -10.8 Diff [phone] Hematocrit 41 % Low 42-52 Hemoglobin 14.3 g/dL 14.0-18.0 Mean Corpuscular HGB Cone 35 g/dL 32-36 Mean Corpuscular Hemoglob 32 pg High 27-31 Mean Corpuscular Volume 93 um3 80-94 Mean Platelet Volume 7.2 um3 Low 7.4-10.4 Platelet Count 305 CUMM 150-450 Polysegmented Neutrophil 47 % 38-83 Red Cell Count 4.42 CUMM Low 4.6-6.2 Redcell Distribution WDTH 14 % 10.5-15 Absolute Neutrophil Count 3.0 Atypical Lymph 3 % 0-6 Anisocytosis SLIGHT Band Neutrophil 2 % 0-8 Basophil 2 % 0-2 Lymphocyte 38 % 5-47 Monocyte 8 % 0-13 Polychromasia SLIGHT 1 void, clear, yellow 2 [place] Severe Sepsis and Septic Shock Management Bundle Measure requires all lactic acids initially measuring >2.0 mmol/L be repeated. 3 Because ethnic data is not always readily available, this report includes an eGFR for both -Americans and non- Americans. The National Kidney Disease Education Program (NKDEP) does not endorse the use of the MDRD equation for patients that are not between the ages of 18 and 70, are , have extremes of body size, muscle mass, or nutritional status, or are non- or non-. According to the [employer], irrespective of diagnosis, the stage of the disease is based on the level of kidney function: Stage Description GFR(mL/min/1.73 m(2)) 1 Kidney damage with normal or decreased GFR 90 2 Kidney damage with mild decrease in GFR 60-89 3 Moderate decrease in GFR 30-59 4 Severe decrease in GFR 15-29 5 Kidney failure <15 (or dialysis) 4 Care Analyst: [id number] 5 void, clear, gold 6 [id number] SEE RESULT BELOW Name: MARIA ALEJANDRA ZHU : [address]: Live Connell MD Acct: [id number] Unit: [id number] AGE: 57 Location: [facility] Re01/25/18 SEX: M Status: DEP REF SPEC: [id number] BULMARO: 01/25/18-1150 [facility] DR: Live Connell MD REQ: [id number] RECD: 01/25/186938 STATUS: ERIC RUSSELL DR: Reginald Morales MD _ ORDERED: LEVEL 4/3 COMMENTS: [id number] FINAL DIAGNOSIS 1. Colon, hepatic flexure, biopsy: -- Tubular adenoma. -- No high grade dysplasia or malignancy. 2. Colon, ascending, biopsy: -- Tubular adenoma. -- No high grade dysplasia or malignancy. 3. Colon, at 60 cm, biopsy: -- Tubular adenoma. -- No high grade dysplasia or malignancy. POST-OPERATIVE DIAGNOSIS 4 polyps ? cecum x1, ascending x2, 60 cm ? biopsy GROSS DESCRIPTION 1. The specimen is received in formalin labeled, Hepatic Flexure Polyp Biopsy (2), and consists of two mondragon-pink irregular to polypoid soft tissue fragments measuring 0.6 x 0.3 x 0.2 cm and 0.6 x 0.3 by up to 0.3 cm which are entirely submitted in one cassette. 2. The specimen is received in formalin labeled, Ascending Colon Polyp Biopsy, and consists of a 0.6 x 0.3 x 0.2 cm speckled mondragon-pink irregular to polypoid soft tissue fragment which is entirely submitted in one cassette. 3. The specimen is received in formalin labeled, Biopsy Colon Polyp at 60 cm, and consists of two mondragon-pink irregular to polypoid soft tissue fragments measuring 0.4 x 0.2 x 0.1 cm and 0.4 x 0.4 by up to 0.3 cm which are entirely submitted in one cassette. CONTINUED ON NEXT PAGE DEPARTMENT OF PATHOLOGY, [address] [place] [address] Jorge Daley M.D. Director [facility] # [id number] RUN DATE: 01/26/18 [facility] LAB LIVE PAGE 2 Patient: MARIA ALEJANDRA ZHU [id number] (Continued) GROSS DESCRIPTION (Continued) Signed (signature on file) Radha Caban MD 04/09 1056 END OF REPORT DEPARTMENT OF PATHOLOGY, [address] [place] [address] Jorge Daley M.D. Director [facility] # [id number] Desirable <150 Borderline high 150-199 High 200-499 Very High >500 9 Desirable <200 Borderline high 200-239 High >239 10 Low <40 Desirable: 40-60 High: >60 11 Desirable: <100 mg/dL Near Optimal: 100-129 mg/dL Borderline High: 130-159 mg/dL High: 160-189 mg/dL Very High: >189 mg/dL 12 FASTING 12 HOUR 13 Desirable <150 Borderline high 150-199 High 200-499 Very High >500 14 Desirable <200 Borderline high 200-239 High >239 15 Low <40 Desirable: 40-60 High: >60 16 Desirable: <100 mg/dL Near Optimal: 100-129 mg/dL Borderline High: 130-159 mg/dL High: 160-189 mg/dL Very High: >189 mg/dL 17 Serum levels of PSA measured using the Matt Anay DXI Hybritech immunoassay should not be interpreted as absolute evidence of the presence or absence of disease. The PSA value should be used in conjunction with other pertinent clinical diagnostic procedures. The values obtained with different assay methods or kits cannot be used interchangeably. 18 Desirable <150 Borderline high 150-199 High 200-499 Very High >500 19 Desirable <200 Borderline high 200-239 High >239 20 Low <40 Desirable: 40-60 High: >60 21 Desirable <100 Near Optimal 100-129 Borderline high 130-159 High 160-189 Very High >189 22 RUN DATE: 02/04/13 [facility] LAB LIVE PAGE 1 RUN TIME: [address] [place] [id number] Specimen Inquiry Name: ZABRINA ZHULAS : [address]: Beni Dumas MD Acct: [id number] Unit: [id number] AGE: 52 Location: [facility] Re01/31/13 SEX: M Status: REG REF SPEC: [id number] BULMARO: 01/31/13- SUBM DR: Beni Dumas MD REQ: [id number] RECD: 01/31/13 STATUS: ERIC RUSSELL DR: Jeanine Garcia MD _ ORDERED: LEVEL IV/6 FINAL DIAGNOSIS 1. Colon, 25 cm., biopsy: Hyperplastic polyp. 2. Colon, cecum, biopsy: A. Tubular adenoma. B. No high grade dysplasia or malignancy. 3. Colon, 40 cm., biopsy: Hyperplastic polyp. 4. Colon, 30 cm., biopsy: Inflammatory (retention) polyp. 5. Colon, 10 cm., biopsy: A. Tubular adenoma. B. No high grade dysplasia or malignancy. 6. Colon, rectum, biopsy: Inflamed hyperplastic polyp. CLINICAL HISTORY POST-OPERATIVE DIAGNOSIS Colonoscopy into cecum, prep good - 8 small polyps CONTINUED ON NEXT PAGE * ML=Testing performed at Main Lab DEPARTMENT OF PATHOLOGY, [facility] [address] [place], [place] [address] Jorge Daley M.D. Director [facility] Permit #[id number] RUN DATE: 02/04/13 [facility] LAB LIVE PAGE 2 RUN TIME: 1634 [facility] [address] [place], [place] [address] Specimen Inquiry Patient: WENDYMARIA ALEJANDRA [id number] (Continued) GROSS DESCRIPTION (Continued) GROSS DESCRIPTION 1) The specimen is received in formalin labeled Maria Alejandra Pughanagan, Colon Polyp at 25 cm., and consists of two mondragon, soft tissue fragments measuring 0.4 x 0.2 x 0.2 cm. Submitted entirely, one cassette. 2) The specimen is received in formalin labeled Maria Alejandra Zhu, Cecum Polyp , and consists of two mondragon, soft tissue fragments measuring 0.5 x 0.2 x 0.2 cm. Submitted entirely, one cassette. 3) The specimen is received in formalin labeled Maria Alejandra Zhu, Colon Polyp at 40 cm., and consists of a mondragon, soft tissue fragment measuring 0.2 x 0.1 x 0.1 cm. Submitted entirely, one cassette. 4) The specimen is received in formalin labeled Maria Alejandra Zhu, Colon Polyp at 30 cm., and consists of a polypoid, mondragon, soft tissue fragment measuring 0.4 x 0.3 x 0.2 cm. Submitted entirely, one cassette. 5) The specimen is received in formalin labeled Maria Alejandra Zhu, Colon Polyp at 10 cm., and consists of a mondragon, soft tissue fragment measuring 0.5 x 0.3 x 0.2 cm. Submitted entirely, one cassette. 6) The specimen is received in formalin labeled Maria Alejandra Zuh, Rectal Colon Polyp, and consists of a mondragon, soft tissue fragment measuring 0.3 x 0.2 x 0.2 cm. Submitted entirely, one cassette. Signed (signature on file) Jorge Daley MD 1634 END OF REPORT * ML=Testing performed at Main Lab DEPARTMENT OF PATHOLOGY, [address] [place] [address] Jorge Daley M.D. Director [facility] Permit #[id number] 23 HDL Interpretation: Undesirable: High Risk: Less than 40 MG/DL Desirable: Low Risk: Greater than 60 MG/DL 24 LDL Interpretation: Low Risk Optimal Level: LDL Less than 100 MG/DL Near or Above Optimal: LDL 100-129 MG/DL Borderline High Risk: LDL 130-159 MG/DL High Risk: LDL 160-189 MG/DL Very High Risk: LDL Greater than 189 MG/DL 25 Because ethnic data is not always readily available, this report includes an eGFR for both -Americans and non- Americans. The National Kidney Disease Education Program (NKDEP) does not endorse the use of the MDRD equation for patients that are not between the ages of 18 and 70, are , have extremes of body size, muscle mass, or nutritional status, or are non- or non-. According to the National Kidney Foundation, irrespective of diagnosis, the stage of the disease is based on the level of kidney function: Stage Description GFR(mL/min/1.73 m(2)) 1 Kidney damage with normal or decreased GFR 90 2 Kidney damage with mild decrease in GFR 60-89 3 Moderate decrease in GFR 30-59 4 Severe decrease in GFR 15-29 5 Kidney failure <15 (or dialysis) 26 FASTING 27 FASTING 28 FASTING 29 FASTING 30 FASTING 31 Anion gap measurement may be of limited value in the presence of any alkalosis, especially in a combined acid base disorder. . 32 A metabolite of Naproxen, O-desmethylnaproxen, has been shown to interfere with the Jendrassik-Jaskaran method for measuring total bilirubin. Samples from patients who have taken Naproxen have shown spurious elevation in total bilirubin levels. 33 Because ethnic data is not always readily available, this report includes an eGFR for both -Americans and non- Americans. The National Kidney Disease Education Program (NKDEP) does not endorse the use of the MDRD equation for patients that are not between the ages of 18 and 70, are , have extremes of body size, muscle mass, or nutritional status, or are non- or non-. According to the National Kidney Foundation, irrespective of diagnosis, the stage of the disease is based on the level of kidney function: Stage Description GFR(mL/min/1.73 m(2)) 1 Kidney damage with normal or decreased GFR 90 2 Kidney damage with mild decrease in GFR 60-89 3 Moderate decrease in GFR 30-59 4 Severe decrease in GFR 15-29 5 Kidney failure <15 (or dialysis) 34 RUN DATE: 04/26/12 [facility] NMI LIVE PAGE 1 RUN TIME: 908 Specimen Inquiry RUN USER: INTERFACE Name: MARIA ALEJANDRA ZHU Status: DEP CLI Re04/24/12 Age/Sex: 52/M Unit#: [id number] Location: : 56 SPEC #: [id number] BULMARO: 04/24/12 STATUS: KEITH REQ #: [id number] RECD: 04/24/12 [facility] DR: Yony Camargo MD SOURCE: URINE ENTR: 04/24/[address]: Jeanine Garcia MD [facility]: ORDERED: URINE C S QUERIES: SPECIMEN DESCRIPTION: URINE, CLEAN CATCH ACT WKST: UR 04/26/12 #1 Procedure Result Verified Site > URINE CULTURE SENSITIVI Final 04/26/12- 907 ML FINAL: NO GROWTH DAY 2 (<1,000 CFU/mL) ML - [facility] Permit #[id number] [address] [place] [address] DEPARTMENT OF PATHOLOGY, [address] [place] [address] [facility] Permit #[id number] Kristin Shields M.D. Tack Cleaner 35 * SERUM LEVELS OF PSA MEASURED USING THE MATT ANAY ACCESS HYBRITECH IMMUNOASSAY SHOULD NOT BE INTERPRETED ABSOLUTE EVIDENCE OF THE PRESENCE OR ABSENCE OF DISEASE. THE PSA VALUE SHOULD BE USED IN CONJUNCTION WITH OTHER PERTINENT CLINICAL DIAGNOSTIC PROCEDURES. 36 Anion gap measurement may be of limited value in the presence of any alkalosis, especially in a combined acid base disorder. . 37 A metabolite of Naproxen, O-desmethylnaproxen, has been shown to interfere with the Jendrassik-Alpha method for measuring total bilirubin. Samples from patients who have taken Naproxen have shown spurious elevation in total bilirubin levels. 38 Because ethnic data is not always readily available, this report includes an eGFR for both -Americans and non- Americans. The National Kidney Disease Education Program (NKDEP) does not endorse the use of the MDRD equation for patients that are not between the ages of 18 and 70, are , have extremes of body size, muscle mass, or nutritional status, or are non- or non-. According to the National Kidney Foundation, irrespective of diagnosis, the stage of the disease is based on the level of kidney function: Stage Description GFR(mL/min/1.73 m(2)) 1 Kidney damage with normal or decreased GFR 90 2 Kidney damage with mild decrease in GFR 60-89 3 Moderate decrease in GFR 30-59 4 Severe decrease in GFR 15-29 5 Kidney failure <15 (or dialysis) 39 Anion gap measurement may be of limited value in the presence of any alkalosis, especially in a combined acid base disorder. . 40 Note change in reference range as of 06/12/08. The change was based on recommendations from the [place] [employer]. 41 Please note change in reference range effective 08 . 42 CHOLESTEROL INTERPRETATION: Desirable: Less than 200 MG/DL Borderline-High Risk: 200-239 MG/DL High-Risk: 240 MG/DL and over 43 HDL INTERPRETATION: Undesirable: High Risk: Less than 40 MG/DL Desirable: Low Risk: Greater than 60 MG/DL 44 LDL INTERPRETATION: Low Risk Optimal Level: LDL Less than 100 MG/DL Near or Above Optimal: LDL 100-129 MG/DL Borderline High Risk: LDL 130-159 MG/DL High Risk: LDL 160-189 MG/DL Very High Risk: LDL Greater than 189 MG/DL 45 Anion gap measurement may be of limited value in the presence of any alkalosis, especially in a combined acid base disorder. . 46 Classification: Borderline High . 47 Classification: High . 48 CALCULATED LDL APPROXIMATES THE VALUE OF A DIRECT LDL MEASUREMENT. Classification: Near or above optimal . 49 FASTING 50 Classification: Desirable . 51 Classification: High . 52 CALCULATED LDL APPROXIMATES THE VALUE OF A DIRECT LDL MEASUREMENT. Classification: Near or above optimal . 53 Anion gap measurement may be of limited value in the presence of any alkalosis, especially in a combined acid base disorder. . Procedures Date Code Description Status 04/23/2018 47562 Allergy Injection X 1 Completed 04/09/2018 52767 X-Ray Knee, Complete Completed 04/04/2018 53067 Remove Impact Cerumen Requiring Instrument, Unilateral Completed 03/26/2018 65025 Allergy Injection X 1 Completed 02/26/2018 48448 Allergy Injection X 1 Completed 01/29/2018 77570 Allergy Injection X 1 Completed 01/21/2018 28299780 Colonoscopy Completed 01/01/2018 41011 Allergy Injection X 1 Completed 12/04/2017 95565 Allergy Injection X 1 Completed 11/06/2017 24325 Allergy Injection X 1 Completed 10/09/2017 32011 Allergy Injection X 1 Completed 09/11/2017 40870 Allergy Injection X 1 Completed 08/14/2017 26546 Allergy Injection X 1 Completed 07/14/2017 22687 Allergy Injection X 1 Completed 06/16/2017 40909 Allergy Injection X 1 Completed 06/07/2017 48067 Allergen Immunotherapy SNGL/Mult - Specify # Doses Completed 05/19/2017 52445 Allergy Injection X 1 Completed 04/19/2017 72784 Allergy Injection X 1 Completed 03/22/2017 97880 Allergy Injection X 1 Completed 02/20/2017 16932 Allergy Injection X 1 Completed 01/20/2017 98048 Allergy Injection X 1 Completed 12/23/2016 46285 Allergy Injection X 1 Completed 11/25/2016 59834 Allergy Injection X 1 Completed 10/28/2016 68429 Allergy Injection X 1 Completed 10/28/2016 2 Completed 09/26/2016 62859 Allergy Injection X 1 Completed 08/26/2016 85971 Allergy Injection X 1 Completed 08/26/2016 96447 SC/Im Injections Completed 07/29/2016 99001 Allergy Injection X 1 Completed 06/29/2016 22378 Allergy Injection X 1 Completed 06/13/2016 83298 Allergen Immunotherapy SNGL/Mult - Specify # Doses Completed 06/01/2016 47675 Allergy Injection X 1 Completed 05/02/2016 28452 Allergy Injection X 1 Completed 2016 17704 Allergy Injection X 1 Completed 03/10/2016 51640 Remove Impact Cerumen Requiring Instrument, Unilateral Completed 03/07/2016 20421 Allergy Injection X 1 Completed 02/08/2016 09432 Allergy Injection X 1 Completed 01/11/2016 26103 Allergy Injection X 1 Completed 12/14/2015 73155 Allergy Injection X 1 Completed 11/16/2015 00255 Allergy Injection X 1 Completed 10/19/2015 19758 Allergy Injection X 1 Completed 09/21/2015 32407 Allergy Injection X 1 Completed 08/25/2015 75845 Allergy Injection X 1 Completed 07/27/2015 55255 Allergy Injection X 1 Completed 07/09/2015 52165 Allergen Immunotherapy SNGL/Mult - Specify # Doses Completed 06/26/2015 03123 Allergy Injection X 1 Completed 05/27/2015 28424 Allergy Injection X 1 Completed 04/27/2015 81037 Allergy Injection X 1 Completed 03/25/2015 60389 Allergy Injection X 1 Completed 02/25/2015 87932 Allergy Injection X 1 Completed 01/23/2015 46772 Allergy Injection X 1 Completed 12/24/2014 69786 Allergy Injection X 1 Completed 11/26/2014 18568 Allergy Injection X 1 Completed 10/27/2014 65220 Allergy Injection X 1 Completed 09/29/2014 96092 Allergy Injection X 1 Completed 09/01/2014 90055 Allergy Injection X 1 Completed 08/20/2014 45331 Remove Impact Cerumen Requiring Instrument, Unilateral Completed 08/08/2014 59233 Allergen Immunotherapy SNGL/Mult - Specify # Doses Completed 08/04/2014 88518 Allergy Injection X 1 Completed 07/07/2014 67930 Allergy Injection X 1 Completed 06/09/2014 96818 Allergy Injection X 1 Completed 05/09/2014 61675 Allergy Injection X 1 Completed 03/18/2014 11203 Allergy Injection X 1 Completed 02/17/2014 70179 Allergy Injection X 1 Completed 01/20/2014 45462 Allergy Injection X 1 Completed 12/23/2013 56839 Allergy Injection X 1 Completed 11/25/2013 52088 Allergy Injection X 1 Completed 11/22/2013 06263 Allergen Immunotherapy SNGL/Mult - Specify # Doses Completed 10/28/2013 62391 Allergy Injection X 1 Completed 10/21/2013 66032 Allergy Injection X 1 Completed 10/14/2013 64874 Allergy Injection X 1 Completed 10/07/2013 13216 Allergy Injection X 1 Completed 09/30/2013 45993 Allergy Injection X 1 Completed 09/23/2013 01524 Allergy Injection X 1 Completed 09/16/2013 02602 Allergy Injection X 1 Completed 09/09/2013 10063 Allergy Injection X 1 Completed 09/02/2013 24251 Allergy Injection X 1 Completed 08/19/2013 03986 Allergy Injection X 1 Completed 08/12/2013 80387 Allergy Injection X 1 Completed 08/02/2013 78748 Allergy Injection X 1 Completed 07/26/2013 84775 Allergy Injection X 1 Completed 07/18/2013 50522 Allergen Immunotherapy SNGL/Mult - Specify # Doses Completed 06/28/2013 68011 Allergy Injection X 1 Completed 06/03/2013 96363 Allergy Injection X 1 Completed 05/27/2013 88247 Allergy Injection X 1 Completed 05/16/2013 91526 Allergy Injection X 1 Completed 05/08/2013 54372 Allergy Injection X 1 Completed 04/30/2013 41042 Allergy Injection X 1 Completed 04/23/2013 28538 Allergy Injection X 1 Completed 04/12/2013 50888 Allergy Injection X 1 Completed 04/05/2013 91243 Allergy Injection X 1 Completed 03/29/2013 43500 Allergy Injection X 1 Completed 03/22/2013 45388 Allergy Injection X 1 Completed 03/11/2013 99529 Allergy Injection X 1 Completed 03/04/2013 63096 Allergy Injection X 1 Completed 02/25/2013 04211 Allergy Injection X 1 Completed 02/18/2013 53117 Allergy Injection X 1 Completed 02/11/2013 13714 Allergy Injection X 1 Completed 02/01/2013 25951 Allergy Injection X 1 Completed 01/25/2013 86143 Allergy Injection X 1 Completed 01/18/2013 77011 Allergy Injection X 1 Completed 01/11/2013 57559 Allergy Injection X 1 Completed 01/04/2013 11196 Allergy Injection X 1 Completed 12/28/2012 14669 Allergy Injection X 1 Completed 12/21/2012 70165 Allergy Injection X 1 Completed 12/20/2012 30194 Allergen Immunotherapy SNGL/Mult - Specify # Doses Completed 11/19/2012 89135 allergy skin testing Completed 06/23/2011 23186 Remove Impact Cerumen Requiring Instrument, Unilateral Completed 06/17/2010 53243 Electrocardiogram Complete Completed 08/16/2006 08209 Electrocardiogram Complete Completed Encounters Type Date Location Provider Dx Diagnosis Office Visit 04/02/2019 Main Office Reginald Morales, N20.9 Urinary calculus, 1:45p M.D. unspecified R35.0 Frequency of micturition R31.29 Other microscopic hematuria Z68.23 Body mass index (BMI) 23.0-23.9, adult Office Visit 08/31/2018 9:45a Main Office Reginald Morales, Z00.00 Encntr for [facility] w/o abnormal findings L29.9 Pruritus, unspecified M77.42 Metatarsalgia, left foot Z71.89 Other specified counseling Office Visit 06/04/2018 2:00p Main Office Reginald Morales, L29.9 Pruritus , M.D. unspecified Office Visit 04/09/2018 3:45p Main Office Reginald Morales, M25.562 Pain in left knee M.D. M77.42 Metatarsalgia, left foot R20.9 Unspecified disturbances of skin sensation M20.5x9 Other deformities of toe(s) (acquired), unspecified foot M21.611 Bunion of right foot M21.612 Bunion of left foot Office Visit 04/04/2018 4:00p Main Office Dior Page PA H61.21 Impacted cerumen, right ear J30.9 Allergic rhinitis, unspecified J30.89 Other allergic rhinitis J30.0 Vasomotor rhinitis Office Visit 08/28/2017 2:00p Main Office Reginald Morales, Z00.00 Encntr for [facility] adult medical exam w/o abnormal findings Z71.89 Other specified counseling Office Visit 03/10/2016 4:00p Main Office Bello Bautista H61.23 Impacted cerharrietnAvi M.D. bilateral H69.02 Patulous Eustachian tube, left ear Office Visit 03/04/2016 3:25p Main Office Bello Bautista H10.021 Other mucopurulent Kristin Cárdenas conjunctivitis, right eye Office Visit 07/29/2014 11:15a Main Office Joslyn 724.2 Lumbago Jake Núñez 729.1 Myalgia & Myositis Unspec Office Visit 11/19/2012 1:45p Main Office Bello Bautista 216.8 Benign Neoplasm Kristin Cárdenas Skin Other Spec Sites 477.9 Rhinitis Allergic Cause Unspec V16.8 History Family Malignant Neoplasm Spec Other V72.7 Examination Skin & Sensitization Diagnositc Tests Office Visit 06/23/2011 9:15a Main Office Jeanine Garcia MD V70.0 Examination General Medical Routine AT Health Care Facility 401.1 Hypertension Benign 424.0 Mitral Valve Disorder 477.9 Rhinitis Allergic Cause Unspec V17.49 Family HX Of Other Cardiovascular Diseases V76.44 Screening For Malig Jose L Prostate 300.4 Dysthymic Disorder 380.4 Impacted Cerumen Office Visit 06/17/2010 9:15a Main Office Jeanine Garcia MD V70.0 Examination General Medical Routine AT Health Care Facility 401.1 Hypertension Benign 424.0 Mitral Valve Disorder V17.49 Family HX Of Other Cardiovascular Diseases 477.9 Rhinitis Allergic Cause Unspec V06.1 Tmwlovhdel-Nlgzhef-Ttsyjmnp Combined (DTaP) V07.2 Prophylactic Immunotherapy Office Visit 08/27/2009 8:55a Main Office Jeanine Garcia MD 401.1 Hypertension Benign Office Visit 06/11/2009 1:45p Main Office Jeanine Garcia MD V70.0 Examination General Medical Routine AT Health Care Facility 424.0 Mitral Valve Disorder V17.49 Family HX Of Other Cardiovascular Diseases 843.8 Sprains & Strains Hip & Thigh Other Spec Sites 401.1 Hypertension Benign 477.9 Rhinitis Allergic Cause Unspec Office Visit 02/11/2009 11:15a Main Office Reginald Morales, 843.8 Sprains & Strains M.D. Hip & Thigh Other Spec Sites Office Visit 01/01/2009 10:45a Main Office Jeanine Garcia MD 401.1 Hypertension Benign 424.0 Mitral Valve Disorder Office Visit 06/28/2007 9:15a Main Office Jeanine Garcia MD 401.1 Hypertension Benign 719.41 Pain Joint Shoulder Region 726.32 Epicondylitis Lateral 704.8 Hair & Hair Follicle Diseases Other Spec V18.1 History Family Endocrine & Metabolic Diseases Office Visit 08/16/2006 9:45a Main Office Reginald Morales, 401.1 Hypertension Benign M.D. 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 at Main Office
[2019-04-09 08:37] VITALS: BP 147/80
--- NOTE | 2019-04-09 10:18 | UC ---
Complaint Male HPI - HPI Summary HPI Summary: right flank pain x 2 weeks pain is intermittent lasting for few hrs pain is 3 out of 10 now, was 8 out of 10 2 hrs ago pain is radiating to right lower abd. no fever, + chills, no n/v , no urinary sx had kidney stones 2 weeks ago - History of Current Complaint Chief Complaint: UCGU Stated Complaint: URINARY Time Seen by Provider: 04/09/19 08:23 Hx Obtained From: Patient Onset/Duration: Gradual Onset, Lasting Weeks - 2, Still Present Timing: Intermittent, Lasting Hours - 2 Severity Initially: Severe Severity Currently: Mild Pain Intensity: 2 Location: Flank - right Character: Colicy Aggravating Factor(s): Nothing Alleviating Factor(s): Nothing Associated Signs And Symptoms: Positive: Back Pain. Negative: Diaphoresis, Fever, Hematuria, Dysuria, Constipation, Blood in Stool, Rectal Pain, Nausea, Vomiting(# Of Episodes =), Penile Swelling, Penile Discharge - Allergies/Home Medications Allergies/Adverse Reactions: Allergies Allergy/AdvReac Type Severity Reaction Status Date / Time No Known Allergies Allergy Verified 03/31/19 12:59 Home Medications: Home Medications Phenazopyridine TAB* [Pyridium 100 mg TAB*] 200 mdi PO TID PRN 04/09/19 [ History Confirmed 04/09/19] PMH/Surg Hx/FS Hx/Imm Hx GI/ History: Kidney Stones - Surgical History Surgical History: None Surgery Procedure, Year, and Place: Denies - Family History Known Family History: Negative: Hypertension, Diabetes - Social History Alcohol Use: Weekly Alcohol Amount: 8-9 Substance Use Type: None Smoking Status (MU): Never Smoked Tobacco Review of Systems All Other Systems Reviewed And Are Negative: Yes Constitutional: Positive: Negative Skin: Positive: Negative Eyes: Positive: Negative ENT: Positive: Negative Respiratory: Positive: Negative Gastrointestinal: Positive: Abdominal Pain. Negative: Vomiting, Diarrhea, Nausea Genitourinary: Positive: Urgency Is Patient Immunocompromised?: No Physical Exam Triage Information Reviewed: Yes Appearance: Well-Appearing, No Pain Distress, Well-Nourished Vital Signs: Initial Vital Signs Temp 97.7 F 04/09/19 08:26 Pulse 52 04/09/19 08:26 Resp 18 04/09/19 08:26 BP 147/80 04/09/19 08:26 Pulse Ox 100 04/09/19 08:26 Vital Signs Reviewed: Yes Eye Exam: Normal Eyes: Positive: Conjunctiva Clear ENT: Positive: Normal ENT inspection, Hearing grossly normal, Pharynx normal Neck: Positive: Supple, Nontender, No Lymphadenopathy Respiratory: Positive: Chest non-tender, Lungs clear, Normal breath sounds Cardiovascular: Positive: RRR, No Murmur, Pulses Normal Abdomen Description: Positive: Nontender, Soft. Negative: CVA Tenderness (R), CVA Tenderness (L), Distended, Guarding Bowel Sounds: Positive: Present Skin Exam: Normal Diagnostics - Radiology No standard instances Radiology Interpretation Completed By: Radiologist Summary of Radiographic Findings: Ct abd/pelvis: IMPRESSION: RIGHT NEPHROLITHIASIS INCLUDING A 0.4 CM RIGHT UVJ STONE WITH MILD RIGHT HYDRONEPHROSIS. Complaint Male Course/Dx - Differential Dx/Diagnosis Provider Diagnosis: Kidney stone on right side Discharge - Sign-Out/Discharge Documenting (check all that apply): Patient Departure All imaging exams completed and their final reports reviewed: Yes - Discharge Plan Condition: Stable Disposition: HOME Prescriptions: Ciprofloxacin HCl [Cipro] 500 mg PO BID #20 tablet Tamsulosin HCl [Flomax] 0.4 mg PO DAILY #14 cap.er.24h Patient Education Materials: Renal Colic (ED) Referrals: Reginald Morales MD [Primary Care Provider] - 3 Days - Billing Disposition and Condition Condition: STABLE Disposition: Home
== END 2019-04-09 09:55 | disposition home or self-care (01) ==
LOC: UCCORT 08:13
DX: N20.0 Calculus of kidney (principal); Z87.442 Personal history of urinary calculi
CPT/HCPCS: 74176; 81003; 99211; G0463